=== PATIENT | male | born 1940 | race Caucasian/White ===

== ENCOUNTER → 2020-08-01 | Outpatient (CLI) | payer OTHER ==
--- NOTE | 2020-08-01 15:03 | DIREP ---
PROCEDURE: MRI JOINT LOWER EXTREMITY-RT W/O COMPARISON:None. INDICATIONS:RIGHT HIP PAIN Technique: Coronal T1, T2 and inversion recovery; axial T1 and T2 fat-sat sequences were obtained of the pelvis. Dedicated sagittal T1 and inversion recovery; coronal proton density fat sat; axial proton density fat sat; axial oblique proton density fat sat sequences were obtained of the right hip. FINDINGS: Osseous structures: There is no fracture, marrow edema, destructive intraosseous lesion or evidence of avascular necrosis. The amount of fluid in the right hip joint space is within physiologic range and is symmetrical with respect to the left hip. The sacroiliac joints and pubic symphysis are normal. The patient has had lower lumbar spine surgery with hardware in place at L4 and L5. Muscles and tendons: The muscles and tendons in the right hip and pelvis are normal in signal and morphology. There is no trochanteric or iliopsoas bursitis. Ligaments: The ligamentum teres is intact. The iliofemoral, ischiofemoral into both femoral ligaments are normal. Labrum and capsule: There is no labral tear or paralabral cyst. Miscellaneous: The prostate gland is enlarged causing elevation of the floor of the bladder measuring 5.1 x 3.8 cm series 501, image 20. There is no inguinal hernia or adenopathy. The neurovascular structures are normal. CONCLUSION: 1. No abnormalities in the right hip. 2. Previous lumbosacral spine surgery. 3. The prostate gland is enlarged. Dictated by: Guillermo Rodriguez M.D. on 08/01/2020 at 02:55 PM
== END | disposition home or self-care (01) ==
LOC: RAD 12:40
PROVIDERS: ATTEND Registered Nurse
DX: N40.0 Benign prostatic hyperplasia without lower urinary tract symptoms (principal); M25.551 Pain in right hip
CPT/HCPCS: 73721